=== PATIENT | female | born 1985 | race Caucasian/White ===

== ENCOUNTER 2023-11-18 10:13 | Outpatient (CLI) | payer BC | END 2023-11-18 10:14 | disposition home or self-care (01) | LOC: SCSMRI 10:13 | PROVIDERS: ATTEND Internal Medicine | DX: M50.11 Cervical disc disorder with radiculopathy, high cervical region (principal); M50.121 Cervical disc disorder at C4-C5 level with radiculopathy; M50.122 Cervical disc disorder at C5-C6 level with radiculopathy; M50.123 Cervical disc disorder at C6-C7 level with radiculopathy; M47.22 Other spondylosis with radiculopathy, cervical region; M48.02 Spinal stenosis, cervical region | CPT/HCPCS: 72141 ==